=== PATIENT | male | born 1950 | race Caucasian/White ===

== ENCOUNTER → 2020-04-26 | Outpatient (CLI) | payer MEDICARE, BC ==
--- NOTE | 2020-04-26 15:46 | RAD ---
EXAM: Cervical spine, 5 views; lumbar spine, 5 views. HISTORY: Pain. COMPARISON: None. FINDINGS: Cervical spine: 5 views of the cervical spine are obtained. There is minimal anterolisthesis of C5 on C6 and retrolisthesis of C3 on C4. There is multilevel endplate remodeling. There is anterior predominant endplate osteophytosis at the lower cervical levels. There is disc space narrowing at C6-C7. There is multilevel facet arthropathy. There is multilevel bilateral foraminal stenosis. Lumbar spine: 5 views of the lumbar spine are obtained. There is straightening of lumbar lordosis. There is degenerative endplate remodeling with disc space narrowing at L4-L5 and L5-S1. There is multilevel endplate remodeling with bridging and partially bridging anterior osteophytes at the lower thoracic levels. There is advanced facet arthropathy at the lower lumbar levels. IMPRESSION: 1. Multilevel degenerative change involving the cervical spine, primarily at C6-C7. 2. Multilevel degenerative change involving the lumbar spine, primarily at L4-L5 and L5-S1. 3. No acute osseous finding. Electronically signed by: Larissa Restrepo MD (04/26/2020 3:43 PM) [facility]
== END ==
LOC: RAD 11:53
PROVIDERS: ATTEND Physician Assistant
DX: M47.812 Spondylosis without myelopathy or radiculopathy, cervical region (principal); M47.817 Spondylosis without myelopathy or radiculopathy, lumbosacral region; M40.46 Postural lordosis, lumbar region; M48.07 Spinal stenosis, lumbosacral region; M25.78 Osteophyte, vertebrae
CPT/HCPCS: 72050; 72110